=== PATIENT | male | born 1995 | race Caucasian/White ===

== ENCOUNTER 2021-03-06 12:56 | Emergency (ER) | payer BC ==
[2021-03-06 13:10] VITALS: BP 120/77; PULSE 77
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
--- NOTE | 2021-03-06 14:21 | CR ---
Left shoulder study: 3 views of left shoulder were obtained. Comparison: No previous study. Elevated distal clavicle is seen at the acromioclavicular joint compatible with acromioclavicular separation. Glenohumeral joint is normal. No acute fracture, dislocation or other bony abnormality is appreciated. Impression: 1. Acromioclavicular separation. 2. Left shoulder study is otherwise unremarkable. Diagnostic code #3
== END 2021-03-06 13:59 | disposition home or self-care (01) ==
LOC: JD.ED 12:56
DX: S43.102A Unspecified dislocation of left acromioclavicular joint, initial encounter (principal); V80.018A Animal-rider injured by fall from or being thrown from other animal in noncollision accident, initial encounter
CPT/HCPCS: 73030-26-LT; 73030-LT; 99283

== ENCOUNTER 2021-06-04 21:01 | Emergency (ER) | payer BC, OTHER ==
[2021-06-04 21:11] VITALS: BP 120/67; PULSE 84
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
--- NOTE | 2021-06-05 08:25 | CR ---
Right wrist: 3 views of the right wrist were obtained. Comparison: No prior wrist exam is available. Fracture is identified within the distal radius involving mostly the metaphysis. There is displacement being seen by about 9 mm as well as posterior impaction causing dorsal tilt of the distal radial articular margin. Joint spaces are preserved. No additional fracture is appreciated. Diffuse soft tissue swelling is present. Impression: 1. Displaced and impacted distal radial fracture involving the right wrist as described above. 2. Soft tissue swelling is present. Diagnostic code #3
== END 2021-06-05 00:30 | disposition home or self-care (01) ==
LOC: JD.ED 21:01
DX: S52.501A Unspecified fracture of the lower end of right radius, initial encounter for closed fracture (principal); V80.919A Animal-rider injured in unspecified transport accident, initial encounter
CPT/HCPCS: 29105; 29125; 73110-26-RT; 73110-RT; 99283; 99283-25

== ENCOUNTER 2022-08-09 10:31 | Day surgery (SDC) | payer BC ==
[~2022-08-09 10:31] MED LIST: Bupivacaine 0.25% 10 ML SDV ONE; Dexamethasone 4 MG/ML 5 ML MDV ONE; EPINEPHrine 1 MG/ML SDV ONE; Ketorolac 30 MG/ML SDV ONE; Lidocaine 1% 5 ML VIAL ONE; Midazolam 1 MG/ML 2 ML SDV ONE; Ondansetron 4 MG/2 ML SDV ONE; Propofol 200 MG/20 ML SDV ONE; Ropivacaine 0.5% 5 MG/ML 30 ML SDV ONE; ceFAZolin 2 GM Vial ONE; fentaNYL 100 MCG/2 ML SDV ONE
[2022-08-09] MEDS ORDERED: fentaNYL 100 MCG/2 ML SDV ONE (10:33)
[2022-08-09] MEDS ORDERED: Lidocaine 1%/Sod Bicarbonate in NS 8.4% 1 ML Syringe IDERM PRN (10:36)
[2022-08-09] MEDS ORDERED: Sodium Chloride 0.9% 10 ML Syringe FLUSH PRN (10:36)
[2022-08-09] MEDS ORDERED: Lactated Ringers 1,000 ML IV SCH (10:45)
[2022-08-09] MEDS ORDERED: Sodium Chloride 0.9% 10 ML Syringe FLUSH SCH (11:00)
[2022-08-09] MEDS ORDERED: fentaNYL 100 MCG/2 ML SDV IVPUSH PRN (11:03)
[2022-08-09] MEDS ORDERED: HYDROmorphone 0.5 MG/0.5 ML Syringe IVPUSH PRN (11:03)
[2022-08-09] MEDS ORDERED: Ondansetron 4 MG/2 ML SDV IVPUSH PRN (11:03)
[2022-08-09] MEDS ORDERED: Lactated Ringers 1,000 ML ONE (11:06)
[2022-08-09] MEDS ORDERED: Bupivacaine 0.25% 10 ML SDV ONE (11:20)
[2022-08-09 14:05] VITALS: BP 121/78; PULSE 75
== END 2022-08-09 13:38 | disposition home or self-care (01) ==
LOC: JD.SDS 10:31
PROVIDERS: ATTEND Orthopaedic Surgery
DX: T84.84XA Pain due to internal orthopedic prosthetic devices, implants and grafts, initial encounter (principal); F17.210 Nicotine dependence, cigarettes, uncomplicated; E66.9 Obesity, unspecified; Z68.33 Body mass index [BMI] 33.0-33.9, adult; Z98.890 Other specified postprocedural states; Z79.899 Other long term (current) drug therapy; Z90.49 Acquired absence of other specified parts of digestive tract
CPT/HCPCS: 20680; 76000; J0690; J1100; J1885; J2250; J2405; J2704; J3010; J3490; J7120; 01830; J0171; J2795